=== PATIENT | male | born 1950 | race Caucasian/White ===

== ENCOUNTER 2019-09-25 17:34 | Inpatient (IN) | payer OTHER ==
[~2019-09-25] VITALS: Ht 172.7 cm; Wt 75.9 kg
[2019-09-25 17:35] VITALS: BP 124/63
[2019-09-25 18:03] LABS: URINE BLOOD NEGATIVE (Negative); URINE CLARITY CLEAR; URINE COLOR YELLOW; URINE GLUCOSE-RANDOM* NEGATIVE (Negative); URINE KETONES 1+ (Negative); URINE LEUKOCYTES-REFLEX NEGATIVE (Negative); URINE NITRITE-REFLEX NEGATIVE (Negative); URINE PROTEIN (DIPSTICK) NEGATIVE (Negative); URINE SPECIFIC GRAVITY 1.015 (1.005-1.035); URINE UROBILINOGEN 0.2 E.U./dl (0.2-1.0)
[2019-09-25 18:05] LABS: ICTOTEST (BILI CONFIRMATORY) Negative (Negative); URINE BILIRUBIN NEGATIVE (Negative)
[2019-09-25 19:07] LABS: ABSOLUTE NEUTROPHILS 3.6 thou/uL (1.4-8.2); BASOPHILS 0.9 % (0.0-2.0); CALCIUM 9.1 mg/dL (8.5-10.1); CREATININE 1.7 mg/dL (0.7-1.3); EOSINOPHILS 3.9 % (0.0-3.0); HEMATOCRIT 38.1 % (42.0-52.0); HEMOGLOBIN 12.9 gm/dL (14.0-18.0); LYMPHOCYTES 28.3 % (24.0-44.0); MCH 30.9 pg (26.0-34.0); MCHC 33.8 g/dL (28.0-37.0); MCV 91.4 fL (80.0-100.0); MONOCYTES 8.9 % (1.0-8.0); PLATELET COUNT 396 thou/uL (150-400); POTASSIUM 3.6 mmol/L (3.5-5.1); RBC 4.16 mil/uL (4.50-6.00); WBC 6.2 thou/uL (4.0-11.0)
[2019-09-25 19:14] LABS: ALBUMIN 3.8 g/dL (3.4-5.0); TOTAL BILIRUBIN 0.5 mg/dL (<0.1-1.0); TOTAL PROTEIN 7.4 g/dL (6.4-8.2)
--- NOTE | 2019-09-25 19:16 | NUR ---
REPEAT CREATININE IN AM.
[2019-09-25] MEDS ORDERED: MAG-OXIDE400 MG PO (21:04)
[2019-09-25] MEDS ORDERED: TWOCAL HN LIQU237 ML PO (21:05)
[2019-09-25] MEDS ORDERED: CASODEX 50 MG T50 M1 PO (21:05)
[2019-09-25] MEDS ORDERED: TRAMADOL 50 MG50 MG PO (21:06)
[2019-09-25] MEDS ORDERED: DESYREL150 MG PO (21:06)
[2019-09-25] MEDS ORDERED: ATIVAN0.5 M1 PO (21:07)
[2019-09-25 21:51] VITALS: BP 126/60
[2019-09-25 22:00] VITALS: BP 153/75
[2019-09-25] MEDS ORDERED: DEPAKOTE250 MG PO (22:37)
[2019-09-25] MEDS ORDERED: ASPIRIN325 PO (22:37)
[2019-09-25] MEDS ORDERED: PLAVIX 75 MG TA75 MG PO (22:38)
[2019-09-25] MEDS ORDERED: LIPITOR40 MG PO (22:38)
[2019-09-25] MEDS ORDERED: ISOSORBIDE MONO30 M1 PO (22:39)
[2019-09-25] MEDS ORDERED: LISINOPRIL-HCT1 EAC1 PO (22:40)
[2019-09-25] MEDS ORDERED: METOPROLOL SUCC25 M1 PO (22:41)
[2019-09-25] MEDS ORDERED: SERTRALINE HCL100 MG PO (22:41)
[2019-09-25] MEDS ORDERED: PROTONIX40 M2 PO (22:41)
--- NOTE | 2019-09-25 23:55 | NUR ---
Patient admitted to [facility] this shift from [facility] by w/c. Patient currently resides at [facility]. Per record, patient has been swinging at staff, going into female peer rooms, inability to be re-directed. Patient calm and cooperative since arrival. Alert and oriented to person only. Appears restless at times. Fidgeting, pacing about the dayroom. Difficulty following one step directions. Received verbal consent from Daughter Judy CoreasMODE over the phone with 2 nurses. Confidential code provided. Daughter then requested to speak with patient. Nurse took patient cordless phone to speak with daughter. Patient had difficulty understanding how to hold phone, put it up to his ear and speak with daughter. Patient asked several times where he was and why he was here. Responded "I don't know" to multiple questions. Patient received IV fluids in the ED prior to arrival for mild LILLIAM. Repeat BMP scheduled for 09/26/19 AM. Patient up ad martha with steady gait. Disorganized speech observed at times. Denies pain or discomfort. Denies anxiety and depression. Denies SI/HI/AH/VH. No obvious delusional or paranoia behaviors observed. Patient has past medical history of prostate cancer, HTN, HLD, PVD, aortic aneurysm. Med rec completed and admission orders obtained from Dr. Lugo, on behalf of Dr. Joseph. Appears that patient was receiving supplement drinks TID at facility. Unknown of any weight loss. Dietary referral placed. Patient provided snack which he ate 10% of. Drank 120cc milk. Patient did require mod assist with staff x1 with multiple verbal cues to change clothing and lay in bed. After pt was able to lay down, patient fell asleep without difficulty and has been resting quietly since.
[2019-09-26 05:29] LABS: ALBUMIN 3.8 g/dL (3.4-5.0); CALCIUM 8.8 mg/dL (8.5-10.1); CREATININE 1.4 mg/dL (0.7-1.3); POTASSIUM 3.5 mmol/L (3.5-5.1); TOTAL BILIRUBIN 0.4 mg/dL (<0.1-1.0); TOTAL PROTEIN 7.3 g/dL (6.4-8.2)
[2019-09-26 08:04] VITALS: BP 100/55
--- NOTE | 2019-09-26 08:22 | EKG ---
[facility] [place] [address] ELECTROCARDIOGRAM REPORT Name: DEJA TINOCO Room #: 526B-B ADM IN M.R.#: [id number] Admission: 09/25/19 Attend Phys: Savannah Lugo MD Discharge: Date of : 54 Report #: [id number] THIS REPORT FOR: cc: Mp Gómez MD, Srinath MD Couchonnal, Luis F. 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
[2019-09-26 09:42] LABS: FOLIC ACID 16.6 ng/mL (8.6-58.9)
--- NOTE | 2019-09-26 14:58 | NUR ---
REKHA called and spoke with pt's DPOA dght Judy. She reported that pt was at [facility] for abut 6 momths and has had an increase in behaviors htese past 2 months. It is unclear if they will take him back. They are wanting less aggression for him to return. Sw will f/u with notes on Sunday. Rekha completed the intake assessment and TP.
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
[2019-09-26 19:52] VITALS: BP 149/80
--- NOTE | 2019-09-26 21:14 | NUR ---
Care of patient assumed at 1915. Patient is lying in bed. When this nurse approaches patient, he looks away. Poor eye contact throughout interaction. Patient largely uncooperative with assessment. Answers every question with I don't give a fuck anymore. Appears depressed and is tearful. Does allow physical assessment. HS reg, LS CTA, BS present x 4. Upon palpation of abdomen, patient is guarding and wincing when ULQ palpated. Tramadol given for pain with HS meds. During med administration, patient states he has to use the toilet. Assisted to bathroom. Patient voids small amount and has medium BM. Compliant with all HS meds. 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 Much of speech is garbled. Unable to make much sense of what he says.
--- NOTE | 2019-09-27 10:42 | NUR ---
PATIENT WAS UP SITTING IN DAY ROOM THIS MORNING, WHEN APPROACHED WITH MORNING MEDICATION, PATIENT BECAME VERY ANGRY, IRRITABLE, REFUSED THE MED, REFUSED BREAKFAST, "STAY THE "F" WAY FROM ME I DO NOT WANT YOU AROUND ME. I DON'T WANT ANYTHING TO EAT". PATIENT IS VERY CONFUSED, MAKING NONSENSICAL STATEMENT. PATIENT IS SAD, VERBALLY ABUSIVE TOWARDS STAFF. REFUSES TO RESPOND TO ASSESSMENT QUESTIONS DESPITE ENCOURAGMENT BY MULTIPLE STAFF. HE SAT IN MORNING GROUP, CURRENTLY SEEM TO BE INTERACTING WELL WITH THE RECREATIONAL THERAPIST, WILL CONTINUE TO REDIRECT, ENCOURAGE MED COMPLIANT, AND MONITOR FOR SAFETY.
[2019-09-27 11:26] VITALS: BP 145/87
[2019-09-27 19:24] VITALS: BP 127/78
[2019-09-27 22:57] VITALS: BP 127/78
--- NOTE | 2019-09-28 01:45 | NUR ---
Assumed care of patient at change of shift. Pt.took PO meds without difficulty. Pt. is alert and oriented x 2 - 3, pupils are pinpoin, and bipedal edema is noted. LCTA but diminished in bases. Bowel sounds x 4 hypoactive. Last BM noted on 09/25. Pt. denies pain and no signs or symptoms of pain or distress noted.
--- NOTE | 2019-09-28 09:55 | NUR ---
PATIENT HAS BEEN UP AND OUT ON THE UNIT, CALM, COOPERATIVE WITH CARE. PATIENT TOOK MORNING MEDICATION WHOLE WITHOUT DIFFICULTY. PATIENT IS EATING MEALS, AND DRINKING FLUID WELL. PATIENT REMAIN FORGETFUL, CONFUSED, AND DELUSIONAL. THINKS THE RECREATIONAL THERAPIST IS HIS GIRLFRIEND. PATIENT DENIES SUICIDAL/HOMICIDAL IDEATION. HE DENIES HAVING PHYSICAL PAIN, NO SIGN OF ACUTE DISTRESS NOTED AT THIS TIME, WILL MONITOR FOR SAFETY.
--- NOTE | 2019-09-28 10:37 | NUR ---
REKHA faxed update to [place].
[2019-09-28 10:46] VITALS: BP 155/70
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
--- NOTE | 2019-09-29 00:46 | NUR ---
ASSUMED CARE ON 09/28/19 @ 19:15, IN BED, AND REFUSED TO ALLOW SELF TO BE REPOSITIONED. REFUSED TO ALLOW VS TO BE TAKEN. REFUSED CALL FROM DAUGHTER. UPON REDIALING DAUGHTER, WAS UNABLE TO GET THE CALL THRU. ACCEPTED MEDS CRUSHED IN ICE CREAM. USED OBSCENITIES TO EXPRESS HIMSELF WHEN ASKED TO REPOSITION HIM IN BED. REFUSED VS. A&O TO SELF ONLY. WILL CONTINUE TO MONITOR Q 12 MINUTES FOR PATIENT SAFETY.
[2019-09-29 08:10] VITALS: BP 141/68
--- NOTE | 2019-09-29 08:30 | NUR ---
PT RESTING WITH EYES CLOSED.
[2019-09-29 09:01] LABS: CREATININE 1.2 mg/dL (0.7-1.3); POTASSIUM 3.8 mmol/L (3.5-5.1)
[2019-09-29 09:20] VITALS: BP 141/68
--- NOTE | 2019-09-29 11:04 | NUR ---
Sw called and left VM with pt's dght requesting a family meeting
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
--- NOTE | 2019-09-29 14:47 | NUR ---
PT DAUGHTER CLEMENTINA CALLED AND WANTING TO TALK TO PT. WILL ASSIST WITH GETTING THE PHONE AND HAVE PT COMMUNICATE WITH HER.
--- NOTE | 2019-09-29 15:06 | NUR ---
GIGI called and spoke with [facility] with Dr watts. He provided an update. Pt will have a doxy.me visit on Sunday at 11:30am. Pt will d/c back to [facility] next week. Gigi and Dr watts attempted to meet wiht the pt but he was not easily rousable from his nap and then cussed us out.
--- NOTE | 2019-09-29 16:00 | NUR ---
PT UP OUT OF BED AT THIS TIME AND SITTING IN DINING ROOM. PT DID TALK TO CLEMENTINA ON PHONE.
--- NOTE | 2019-09-29 17:32 | NUR ---
PT NEEDED ENCOURAGE TO TAKE MEDICATION. PT TOOK WELL WHEN MED CUP UP TO MOUTH.
[2019-09-29 19:36] VITALS: BP 110/60
--- NOTE | 2019-09-29 22:25 | NUR ---
ASSUMED CARE ON 09/29/19 @ 19:15, IN BED, COOPERATED WITH ASSESSMENT AND COMPLIANT WITH MEDICATIONS. TOOK MEDS WHOLE WITH WATER. RETURNED TO SLEEP. PUT HIMSELF IN THE A BED. BED B SHEETS CHANGED FOR ROOMMATE. ABLE TO TELL ME HIS NAME, NO OTHER ORIENTATION NOTED. IN BED WITH EYES CLOSED, RESPIRATIONS EVEN AND UNLABORED. BED IN LOW POSITION, BED ALARM SET.
[2019-09-30 07:51] VITALS: BP 131/63
--- NOTE | 2019-09-30 12:47 | NUR ---
Up ambulating in unit with slow, steady gait. Alert to name only. Confused speech at times, at other times he makes short, coherent statements. Denies SI/HI. Independent with meals, compliant with meds. Breath sounds clear t/o. Reg HR auscultated. Color pale pink with brisk capillary refill and palpable peripheral pulses. Incontinent of yellow urine in brief. Active bowel sounds over soft, rounded abdomen. Pulled 2mm scab from L arm, 2-3 cc bld on arm. Wound cleaned and dressing applied.
--- NOTE | 2019-09-30 13:29 | NUR ---
Sw provided an ipad and pt was able to speak with his dght today through [email or web address]. Pt has 15 minutes of a good talk and was pleasant and seemed happy to see her.
[2019-09-30 19:41] VITALS: BP 108/60
--- NOTE | 2019-09-30 20:14 | NUR ---
Pt. was lying in bed when assessment was performed. Large green/brown bruise noted to left flank. He denies pain and shows no signs or symptoms of pain when area is palpated. Pt. was sleeping but awaken easily but was lethargic in answering questions. He as able to state name but was disoriented to place, year/time, situation. His affect was flat and his interaction was minimal. His skin tone is pale, his lungs were clear but distant and diminished to all lobes. Last BM is noted to be 09/29/19.
[2019-09-30 23:28] VITALS: BP 108/60
--- NOTE | 2019-10-01 02:18 | NUR ---
Pt. resting quietly in bed with eyes closed. Respirations even and non-labored. NO signs or symptoms of pain or distress.
--- NOTE | 2019-10-01 09:00 | NUR ---
Assumed care 0700.He denied complaints. Kayleenappropriately walk over the roommate's mattressrather thanasking nurse to move over.Hewas reminded not to touchanything belonging to another patient and notto step on anyone's mattress. Hewent to bed afterthe breakfast time.
[2019-10-01 09:41] VITALS: BP 154/78
--- NOTE | 2019-10-01 10:49 | NUR ---
Nutrition followup: Pt continues on [facility] unit due to aggressive behavior at facility. Initial visit pt told RD to go away and never come back. Attempted to visit with pt today but he would not speak to me which is typical behavior per staff. No new weight. Variable intake records but average intake past several days of 70% of meals. Ensure previously ordered on trays and documentation of this is sporadic. Was being offered TID but RD will decrease to BID due to fair/good intake of meals. Change to low nutrition risk.
--- NOTE | 2019-10-01 15:18 | NUR ---
Sw sent updates to [facility] [place]. D/C is expected early next week.
--- NOTE | 2019-10-01 15:23 | NUR ---
REKHA sent updates to [facility] and spoke with Jaycee in admissions and reported that pt was going to be ready to d/c early next week. There are no concerns regarding this.
[2019-10-01 20:00] VITALS: BP 102/54
[2019-10-01 22:00] VITALS: BP 102/54
--- NOTE | 2019-10-01 23:48 | NUR ---
Assumed care of patient this pm shift. Patient in bed resting. Patient is very soft spoken this evening. Patient denies pain. Patient denies hi/si. Patient takes medications crushed in applesauce. Patient ambulates without assistance. Patient is continent of bowel and bladder. Patients assessment shows clear breath sounds, active bowel sounds, and s1 s2 heard with auscultation. We will continue to monitor per protocol.
[2019-10-02 07:56] VITALS: BP 120/83
--- NOTE | 2019-10-02 10:48 | NUR ---
Up ambulating in unit without s/o distress. Gait slightly unsteady at times especially when first getting up. Alert and orientated to person only. Brushed teeth with direction. Denies SI/HI. Breath sounds clear t/o. Reg HR auscultated. Color pink with brisk capillary refill and palpable peripheral pulses. No edema noted. Brief dry this AM. Active bowel sounds over soft, rounded abdomen. Drank ensure and fluids this AM with encouragement, ate very little breakfast. Compliant with meds, took whole with OJ.
--- NOTE | 2019-10-02 12:12 | NUR ---
RT Progress Note- Patient has slowly progressed in participation with the milieu as he no longer isolates to his room. He is limited in socialization d/t cognition. He has not displayed aggressive or assaultive behaviors during RT interactions. Present for exercise and music groups.
[2019-10-02 20:07] VITALS: BP 120/79
--- NOTE | 2019-10-03 02:00 | NUR ---
Care of patient assumed at 1915. Patient is lying in bed. Declines to participate in interview and assessment. Does allow HS, BS, and LS to be auscultated. All normal. Compliant with HS medications. Declines assistance to the bathroom. Still non-communicative. Sleeping at 2100, 2300, and 0100 checks.
[2019-10-03 07:15] VITALS: BP 136/64
--- NOTE | 2019-10-03 08:34 | NUR ---
PT OUT IN DINING ROOM EATING BREAKFAST. PT NEEDED ASSISTANCE WITH OPENING ITEMS. PT ENCOURAGED TO TAKE MEDICATION. PT DID TAKE MEDICATION. PT NOT VERY VERBAL OR POSS. KARUK.
[2019-10-03 08:40] VITALS: BP 136/64
--- NOTE | 2019-10-03 16:15 | NUR ---
REKHA called [facility] and spoke with Jaycee. REKHA informed Pt would be discharged on 10/07/2019 and needed to set up transportation. Lis refered REKHA to Elmer @[phone]. REKHA caled Elmer and left a VM for a call back.
--- NOTE | 2019-10-03 17:33 | NUR ---
PT HAS HAD A GOOD DAY TODAY. DID PUT ON SOCKS ON HIS FEET BEFORE DINNER. PT HAS STEADY BUT SLOW GAIT. PT NOT TALKING VERY MUCH, PT DID TALK TO FAMILY ON THE PHONE THIS EVENING.
--- NOTE | 2019-10-03 19:21 | NUR ---
Care of patient assumed at 1915. Patient is in bed sleeping. Does not respond to verbal stimuli. Checked back at 2030 when HS meds are ready, and patient is awake, but largely non-communicative. Will not answer questions except to say he doesn't care anymore. Does take HS meds without issue, and thanks this nurse when bed is adjusted for comfort.
[2019-10-03 19:30] VITALS: BP 112/64
[2019-10-04 07:42] VITALS: BP 121/76
--- NOTE | 2019-10-04 12:50 | NUR ---
Sitting on side of bed. Flat affect. States he is fed up. Denies SI/HI but later stated that he should just stop eating. Tearful for few minutes. Some confused speech. Orientated to name only. Breath sounds clear t/o. Reg HR auscultated. Color pale pink with brish capillary refill and palpable peripheral pulses. No edema noted. Yellow urine and stool per toilet per report. Active bowel sounds over soft, rounded abdomen. Up ambulating in unit with slow gait. Seated in room when group in session but not participating.
[2019-10-04 19:38] VITALS: BP 121/80
--- NOTE | 2019-10-04 21:02 | NUR ---
Care of patient assumed at 1915. Patient is sitting inthe day room watching TV. Patient continues to refuse to answer assessment questions. Does allow HS, BS, and LS to be assessed. When asked if he is having any pain, he says yes, but is unable to descibe source, duration, or quality of pain. Attempted to give HS meds at 2014. Patient took meds willingly, and drank a full cup of water. When this nurse walked away, OPEN TENTER OPERATOR witnessed patient spit meds into a tissue. call center support consultant (LAURA Zimmerman) is notified. It is suggested that meds be crushed and try to give them again. New meds obtained and crushed, then placed in applesauce. Patient refuses, stating "I said I don't want them you arrogant son of a bitch! What do I have to do, beat some sense into you?" Fellow staff nurse is able to get him to take meds in applesauce a little while later.
[2019-10-05 07:48] VITALS: BP 120/62
[2019-10-05 10:05] VITALS: BP 120/62
--- NOTE | 2019-10-05 11:00 | NUR ---
1100 RESUMMED CARE FROM OVERNIGHT SHIFT THIS AM, PATIENT IN DAY ROOM TALKING WITH OTHER PATIENTS. PATIENT ATE BREAKFAST TOOK MEDICATION WITHOUT INCIDENCE. PATIENTS ABDOMEN SOFT ROUND BOWEL SOUNDS PRESENT IN ALL 4 QUADRANTS. PATIENTS LUNGS CLEAR PATIENT DENIES SI/HI/AH/VH AT PRESENT. PATIENT DID WALK AROUND UNIT WITH WALKER NO PROBLEMS. PATIENT COOPERATIVE CALM WILL CONTINUE TO MONITOR PATIENT FOR SAFETY AND BEHAVIORS.
[2019-10-05 19:40] VITALS: BP 106/75
--- NOTE | 2019-10-05 20:48 | NUR ---
ASSUMED CARE ON 10/05/19 @ 19:15. COOPERATED WITH ASSESSMENT, ASSESSMENT PROTOCOL W/N/L. REPORTS PAIN IN THE NECK WHEN TURNS HEAD. STATES WANTS HIS CODE TO GIVE TO THE [facility] TO GIVE TO A IN STORE DEMONSTRATOR.
--- NOTE | 2019-10-06 00:47 | NUR ---
ASSUMED CARE ON 10/05/19 @ 19:15, A&OX3, FLAT AFFECT. COOPERATES WITH ASSESSMENT, NORMAL PERAMETERS NOTED. COMPLIANT WITH MEDICATION. SLOW TO ANSWER ASSESSMENT QUESTIONS AND SLOW TO TAKE MEDICATIONS. ABLE TO SWOLLOW MEDS WHOLE WITH WATER. RESTING IN BED WITH EYES CLOSED AND RESPIRATIONS EVEN AT THIS WRITING.
[2019-10-06 00:54] VITALS: BP 106/75
--- NOTE | 2019-10-06 05:57 | NUR ---
SLEPT WELL OVERNIGHT WITH 8.5 HOUR SLEEP.
[2019-10-06 07:32] VITALS: BP 131/64
--- NOTE | 2019-10-06 10:27 | NUR ---
Sleeping in bed without s/o distress. Alert and sleepy when awakened. Responds to name but with confused speech to other orientation questions. Denies SI/HI. Withdraws when feet touched, Tylenol given for pain. Did state med "helped a little" upon reassessment. Able to state he was cold and requested a blanket. Slow, shuffling gait around unit. Breath sounds clear. Reg HR auscultated. Color pink with brisk capillary refill and palpable peripheral pulses. No edema noted. Incontinent of large amt yellow urine on floor. Active bowel sounds over large, rounded abdomen, BM yesterday per report. Ate approximately 20 % of breakfast per STUDENT FINANCE ADVISOR. Drank 12 oz ENSURE with meds with encouragement. Currently sleeping without s/o distress. sleeping without s/o distress.
--- NOTE | 2019-10-06 13:25 | NUR ---
REKHA recieved a call from Amalia Méndez at [facility]. Amalia inquired if REKHA had spoken with Elmer about transportation. REKHA informed Elmer has not called after SW left a on sunday. Amalia wanted to know if REKHA could send out a referral for a behvioral placement for the Pt. REKHA informed referrals can be sent on a Pt if deemed that is a more appropriate placement for a Pt. REKHA also informed that this Pt was not recommended for a higher level of care and will be returning to [facility]. Pt discharge is set for 10/07/2019. Chetna inquired about Pt's behavior on the unit. REKHA informed, per the notes, Pt has not been physically aggressive with staff or other Pt's while here. REKHA also informed that updates were faxed to [facility] on Sunday10/05/2019. Amalia seemed very hesitant accepting that Pt coming back stating " Well I cant have him hitting staff and Pt. If he does I will have to send him right back there" and " Can you send referrals to see if another place will accept him"." We are not trying to dump him, he was a very sweet man before all of this, we cant have him being that combative". REKHA encouraged Amalia to speak with the REKHA on staff at [facility] if they felt Pt was in need of a diffrent placement. REKHA informed if Pt becomes unsafe or aggressive after discharge, [facility] can call to get Pt assessed for readmission. Amalia stated she would have transportation set up and give REKHA a call concerning the time.
[2019-10-06 19:34] VITALS: BP 113/70
--- NOTE | 2019-10-07 00:15 | NUR ---
ASSUMED CARE ON 10/06/19 @ 19:15, IN BED EYES CLOSED, RESPIRATIONS EVEN AND UNLABORED AT THE START OF THE SHIFT. VS WNL. PT AWAKENED FOR ASSESSMENT. ABLE TO GIVE NAME AND LITTLE ELSE. HRRR, LUNGS CTA, ABD NORMACTIVE BOWEL SOUNDS, LAST BM 10/04. TOOK MEDS WHOLE WITH YOGART AND WATER. IN BED AT THIS WRITING WITH EYES CLOSED, RESPIRATIONS EVEN AND UNLABORED, BED IN LOW POSITION, 3 RAILS UP, BED ALARM SET. WILL CONTINUE TO MONITOR Q 12 MINUTES FOR PATIENT SAFETY.
[2019-10-07 00:20] VITALS: BP 113/70
--- NOTE | 2019-10-07 06:09 | NUR ---
SLEPT 10.6 HOURS OVERNIGHT
[2019-10-07 09:00] VITALS: BP 102/65; BP 110/80; BP 139/60
[2019-10-07] MEDS ORDERED: BENAZEPRIL HCL20 MG PO (09:47)
[2019-10-07] MEDS ORDERED: DEPAKOTE500 MG PO (09:47)
[2019-10-07] MEDS ORDERED: ZOLOFT25 MG PO (09:48)
[2019-10-07] MEDS ORDERED: SEROQUEL 25 MG25 M1 PO (09:49)
[2019-10-07] MEDS ORDERED: MAGNESIUM400 MG PO (09:50)
[2019-10-07] MEDS ORDERED: FOLIC ACID1 MG PO (09:50)
[2019-10-07] MEDS ORDERED: B-12500 MCG PO (09:50)
[2019-10-07 11:44] VITALS: BP 92/48
--- NOTE | 2019-10-07 11:47 | NUR ---
REKHA left 3 VM and finally heard back from . They will orange picker machine operator at 2pm. REKHA reported this to nursing. REKHA made a packet anc left it in the chart. REKHA faxed the d/c orders summary and meds list with DA 124 C to .
--- NOTE | 2019-10-07 12:24 | NUR ---
Standing up at side of bed, resistant to walking with walker to dining room. Placed in WC is assistance of customer quality specialist. Alert and orientated to person only. Does respond to some questions. Denies SI/HI/pain. Breath sounds clear t/o. Reg HR auscultated. Color pink with brisk capillary refill and palpable peripheral pulses. Slightly hypotensive, encouraging PO fluids. Repeat BP per karrie cuff 110/70, 102 systolic per machine. BP meds held, Dr. Gautam here assessing pt, states he will place parameters in orders. No edema noted. Brief dry. Active bowel sounds over soft, rounded abdomen. Last documented BM 10/04. Plan is to discharge today. Report called to Nurse Claude at [facility] and msg left with admissions to arrange transport. Jaycee called back, very concerned pt will be combative with staff. Trying to decide what mode of transport to use for discharge. Reassured that no combative behaviors were seen with pt over past week. States she will call back. Tena DA SILVA states discharge with take place at 1400. Pt. sitting at table without s/o distress.
== END 2019-10-07 14:30 | DRG 884 ==
LOC: ER 17:34 → SBH 19:47 → EROBS 19:47 → SBH 21:41
PROVIDERS: Hospitalist; Physician Assistant; ADMIT Psychiatry & Neurology Psychiatry
DX: F01.51 Vascular dementia, unspecified severity, with behavioral disturbance (principal); N17.9 Acute kidney failure, unspecified; N18.3 Chronic kidney disease, stage 3 (moderate); E87.1 Hypo-osmolality and hyponatremia; F03.91 Unspecified dementia, unspecified severity, with behavioral disturbance; F32.9 Major depressive disorder, single episode, unspecified; G47.00 Insomnia, unspecified; K21.0 Gastro-esophageal reflux disease with esophagitis; I12.9 Hypertensive chronic kidney disease with stage 1 through stage 4 chronic kidney disease, or unspecified chronic kidney disease; E78.5 Hyperlipidemia, unspecified; I73.9 Peripheral vascular disease, unspecified; D64.9 Anemia, unspecified; E53.8 Deficiency of other specified B group vitamins; Z66 Do not resuscitate; F10.21 Alcohol dependence, in remission; Z85.46 Personal history of malignant neoplasm of prostate; Z79.01 Long term (current) use of anticoagulants; Z79.899 Other long term (current) drug therapy
CPT/HCPCS: 10880

== ENCOUNTER 2019-11-11 11:03 | Inpatient (IN) | payer OTHER ==
[~2019-11-11] VITALS: Ht 162.6 cm; Wt 65.9 kg
[~2019-11-11 11:03] MED LIST: ASPIRIN325 PO; ATIVAN0.5 M1 PO; B-12500 MCG PO; BENAZEPRIL HCL20 MG PO; CASODEX 50 MG T50 M1 PO; DEPAKOTE250 MG PO; DEPAKOTE500 MG PO; DESYREL150 MG PO; FOLIC ACID1 MG PO; ISOSORBIDE MONO30 M1 PO; LIPITOR40 MG PO; LISINOPRIL-HCT1 EAC1 PO; MAG-OXIDE400 MG PO; MAGNESIUM400 MG PO; METOPROLOL SUCC25 M1 PO; PLAVIX 75 MG TA75 MG PO; PROTONIX40 M2 PO; SEROQUEL 25 MG25 M1 PO; SERTRALINE HCL100 MG PO; TRAMADOL 50 MG50 MG PO; TWOCAL HN LIQU237 ML PO; ZOLOFT25 MG PO
[2019-11-11 11:04] VITALS: BP 137/103
[2019-11-11] MEDS ORDERED: MILK OF MA400 MG/5 M PO (11:24)
[2019-11-11 11:32] LABS: BASOPHILS 1.5 % (0.0-2.0); EOSINOPHILS 4.7 % (0.0-3.0); HEMATOCRIT 38.5 % (42.0-52.0); HEMOGLOBIN 12.9 gm/dL (14.0-18.0); LYMPHOCYTES 28.2 % (24.0-44.0); MCHC 33.5 g/dL (28.0-37.0); MCV 89.5 fL (80.0-100.0); MONOCYTES 10.7 % (1.0-8.0); PLATELET COUNT 394 thou/uL (150-400); POLYS 54.9 % (36.0-66.0); RDW 15.1 % (10.5-14.5); WBC 5.4 thou/uL (4.0-11.0)
[2019-11-11 11:36] LABS: CALCIUM 8.9 mg/dL (8.5-10.1); CREATININE 1.3 mg/dL (0.7-1.3); POTASSIUM 3.6 mmol/L (3.5-5.1)
[2019-11-11 11:42] LABS: ALBUMIN 3.4 g/dL (3.4-5.0); DIRECT BILIRUBIN 0.1 mg/dL (<0.1-0.2); TOTAL BILIRUBIN 0.4 mg/dL (0.2-1.0); TOTAL PROTEIN 6.6 g/dL (6.4-8.2)
[2019-11-11 12:40] LABS: URINE BILIRUBIN NEGATIVE (Negative); URINE BLOOD NEGATIVE (Negative); URINE CLARITY CLEAR; URINE COLOR YELLOW; URINE GLUCOSE-RANDOM* NEGATIVE (Negative); URINE KETONES TRACE (Negative); URINE LEUKOCYTES-REFLEX TRACE (Negative); URINE NITRITE-REFLEX NEGATIVE (Negative); URINE PROTEIN (DIPSTICK) NEGATIVE (Negative); URINE UROBILINOGEN 0.2 E.U./dl (0.2-1.0)
[2019-11-11 12:52] LABS: AMP/METHAMP Negative (Negative); BARBITURATES Negative (Negative); BENZODIAZEPINES Negative (Negative); COCAINE Negative (Negative); METHADONE Negative (Negative); OPIATES Negative (Negative); PCP Negative (Negative)
--- NOTE | 2019-11-11 14:40 | NUR ---
PT ARRIVE TO UNIT VIA W/C. PT LAYING AT FOOT OF BED LOOKING OUT AT PERALTA. PT FROM [facility] FOR REFUSING CARE AND SWINGING AT STAFF. PT ORIENTED TO SELF. PT NOT ABLE TO ANSWER QUESTIONS APPROPRIATLY. PT ABLE TO WALK WITHOUT WALKER OR CANE. PT WAS TAKING OFF HIS SOCKS AND GOWN. PUT ON YELLOW SOCKS, AND YELLOW SHIRT, PT ALSO HAS BRIEF ON AND BLUE PANTS. LUNGS CLEAR, NO COUGH. NO EDEMA NOTED TO LE.
[2019-11-11 15:00] VITALS: BP 140/82
--- NOTE | 2019-11-11 17:04 | EKG ---
[facility] [place] [address] ELECTROCARDIOGRAM REPORT Name: DEJA TINOCO Room #: 519- ADM IN M.R.#: [id number] Admission: 11/11/19 Attend Phys: Erick Joseph DO Discharge: Date of : 54 Report #: [id number] THIS REPORT FOR: cc: Mp Gómez MD, Srinath MD Lundgren,Cayden Francis MD [facility] ~ THIS REPORT FOR: //name// [facility] ED Test Date: 2019-11-11 Test Time: 11:09:06 Pat Name: DEJA TINOCO Department: Room: [facility] Gender: M Director Reactor Projects: ALICE : 1950 Requested By: Katie Olosn Order Number: [id number] MD: Cayden Guevara Measurements Intervals [place] Rate: 65 P: 56 DC: 152 QRS: 32 QRSD: 97 T: 19 QT: 421 QTc: 438 Interpretive Statements Sinus rhythm Baseline wander in lead(s) V1 Compared to ECG 09/25/2019 18:57:38 Myocardial infarct finding no longer present Electronically Signed On 11-11-2019 17:04:17 CDT by Cayden Guevara [email or web address] <ELECTRONICALLY SIGNED> By: Cayden Guevara MD, [facility] 11/11/19 1704 1109 1109 Cayden Guevara MD, [facility] /EPI
--- NOTE | 2019-11-11 17:43 | NUR ---
PT TOOK DEPAKOTE WITHOUT ANY ISSUES. PT NEEDED ENCOURAGED TO EAT. PT WALKING AROUND DINING ROOM.
--- NOTE | 2019-11-11 18:13 | NUR ---
PT GETTING ON THE BED NEXT TO HIS THAT WAS RAISED UP, PUT BED DOWN FOR SAFETY ISSUES.
--- NOTE | 2019-11-11 19:15 | NUR ---
ATTEMPTED TO CALL MODE TINOCO FOR CONSENT TO TREAT, NO ANSWER AT THIS TIME. LEFT MESSAGE ON PHONE TO CALL BACK.
[2019-11-11 19:54] VITALS: BP 124/82
--- NOTE | 2019-11-11 23:50 | NUR ---
Care assumed of patient at 1915: Patient pacing the halls and patient rooms at start of shift. Patient pilfering with linens, papers, clothing. Patient re-directed out of patient rooms several times. Resistive but cooperative with re-direction. Wandering the halls but no exit seeking observed. Patient alert and oriented to name only. Patient was asked his birthdate, he answered stating multiple numbers that were not correct. Patient having disorganized speech. Difficulty answering yes/no questions. Patient appeared to be in pain due to facial grimacing and rubbing his back/legs/neck. Patient provided PRN Tylenol with HS medication. Patient took HS medication whole without difficulty. Patient declined HS snack. Patient denies SI/HI/AH/VH but unknown if patient understands questions. No aggression or agitation observed. Patient was able to be assisted to the bathroom, continent of bladder. Patient was assisted to bed after taking HS medications. Patient restless for approximately 1 hour then was able to fall asleep. Patient sleeping quietly at this time. Nurse spoke with Judy Coreas, patient DPOA, verbal consents obtained for admission.
[2019-11-12 09:01] VITALS: BP 146/86
--- NOTE | 2019-11-12 10:40 | NUR ---
Assumed care 0700. At breakfast partially fed himself. Talked on phone with his daughter. Has been walking around dayroom and hallway. When nurse tries to give him pills he looks away and keeps his head down. Asked patient repeatedly to swallow pills. It looked like he was trying to chew pills. The last of AM pills were crushed and put in pudding. His speech is mumbly. A good part of it is not understandable.
--- NOTE | 2019-11-12 13:28 | NUR ---
SW spoke with pt's dght Judy and she stated that she was not satisifed wiht the care from her previous NH and wanted to look for alternate placement now. REKHA sent referrals to [facility], [facility], [facility], [facility], [facility] and [facility].
--- NOTE | 2019-11-12 13:36 | NUR ---
SW also completed the intake assessment and Tp.
--- NOTE | 2019-11-12 16:40 | NUR ---
Pt. was not reported/observed to be moving items from room to room. Note he does not tolerate chair alarm. In the afternoon he he did not remember talking to his daughter earlier in the day. He became tearful for apparently not remembering he had spoken to his daughter on the phone earlier.
--- NOTE | 2019-11-12 19:24 | NUR ---
Care of patient assumed at 1915. Patient is in day room. Restless, getting up from couch, then sitting back down. Largely unredirectable. Patient does accept hs meds and tkes them without issue. Assisted to toilet, then bed. Patient lays in bed for about 20 minutes then gets back up. Comes to day room for a few minutes, then back to bed. This goes on for about an hour, then patient stays in bed.
[2019-11-12 19:43] VITALS: BP 136/83
[2019-11-13 07:28] VITALS: BP 157/81
--- NOTE | 2019-11-13 09:16 | NUR ---
0700 ASSUMED CRE OF PATIENT, PATIENT SLEEPING IN BED AT THAT TIME. PATIENT DID NOT OME OUT FOR BREAKFAST PATIENT CONTINUES TO SLEEP AND NOT WANTING TO GET UP. 0917 PATIENT OUT OF BED TO DAYROOM TO ATTEND GROUP. WILL CONTINUE TO OBSERVE
--- NOTE | 2019-11-13 10:20 | NUR ---
[facility] declined (full and no memory care )
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
--- NOTE | 2019-11-13 14:36 | NUR ---
SW spoke with SW at his previous placement and they are too small and do not have the staff or means to care for his level of need. This worker will assist in finding new placement. Sw requested support and they continue to seek alternate placement for him while he is here.
--- NOTE | 2019-11-13 15:12 | NUR ---
Pt has been denied at [facility]- memory care is full, [facility] has only AL, and [facility]/ [facility] is full / no memory care.
--- NOTE | 2019-11-13 16:03 | NUR ---
1310 PATIENT IN BED AWAKE, PATIENT UNABLE TO FOLLOW DIRECTION AT THAT TIME. PATIENT NOT WANTING TO SIT UP AND TAKE MEDICATION. PATIENT MUMBLES WORDS AND ROOF TILER UNABLE TO UNDERSTAND. PATIENT OUT OF BED ON HIS OWN AT 1325 MEDICATION GIVEN IN APPLESAUCE WITHOUT DIFFICULTY. PATIENT PRESENT IN AFTERNOON GROUP. SW OUT TO NOTIFY STAFF THAT PATIENT IS DISRUPTING OTHERS IN GROUP. PATIENT TO DAYROOM, ASSISTED PATIENT WITH YOGURT. PATIENT CALM AND COOPERATIVE AT THAT TIME. WILL CONTIBNUE TO OBSERVE
--- NOTE | 2019-11-13 19:24 | NUR ---
Care of patient assumed at 1915. Patient is sitting in day room. Calm upon approach. When asked how he is doing today, patient begins rambling nonsensically, saying something about his mom and dad being here. Patient is unable to answer questions during assessment, and just rambles unintelligibly. HS, LS, BS WNL. Generally disoriented. Patient is seen walking the halls 20 minutes later. At 2029 patient is found sleeping in another patient's room and had urinated on the floor in that room's bathroom. Patient is taken to his room, given HS meds, and assisted to bed.
[2019-11-13 19:56] VITALS: BP 126/90
[2019-11-14 09:02] VITALS: BP 134/69
--- NOTE | 2019-11-14 12:01 | NUR ---
Assumed care 0700. He refused breakfast. Pt. refused meds after being offered them three times. He was going to try to refuse to get up out of the bed. He was assisted into w/c with chair alarm. He has been combative, angry, hostile, while being offered cares and meds. Does not offer explanations when asked what the matter is. Self feeding for lunch.
--- NOTE | 2019-11-14 12:41 | NUR ---
REKHA sent referrals to the following [facility] [phone] [facility] [phone] [facility] [phone]
--- NOTE | 2019-11-14 13:58 | NUR ---
Face is flushed. At one point thought staff was a relative. He continuously is talking, reaching in the air calling out to people not present. A majority of the time he keeps his eyes closed even when talking to people not in the room. Says he wants to go, get out of here. Says come on guys I can do it. tries to grab at nurse and grab her computer cart.
[2019-11-14 20:22] VITALS: BP 121/47
--- NOTE | 2019-11-15 01:26 | NUR ---
Care of patient assumed at 1915. Patient is laying in bed talking on the phone. Once off the phone assessment is completed. Patient answers with words and phrases that do not correspond to questions. Oriented to self only. HS, LS, BS all wNL. Compliant with HS meds, and goes to bed immediately after.
--- NOTE | 2019-11-15 10:24 | NUR ---
0700 ASSUMED CARE OF PATIENT, PATIENT IN BED AT THAT TIME. PATIENT TO DAYROOM FOR BREAKFAST. PATIENT SITTING QUIETLY AND NOT EATING. CHIEF GAUGER ASSISTED PATIENT WITH MEAL. SOME RESISTANCE FROM PATIENT AT TIME WHILE EATING. PATIENT ATE 50% OF MEAL. MEDICATIONS GIVEN CRUSHED IN APPLESAUCE WITHOUT DIFFICULTIES. PATIENT IS CALM. ALERT AND ORIENTED X1. PATIENT MUMBLES AT TIME WITH CHIEF GAUGER UNABLE TO UNDERSTAND. PATIENT AWAKE AT THIS TIME SITTING IN DAYROOM. WILL CONTINUE TO OBSERVE.
[2019-11-15 13:27] VITALS: BP 136/75
[2019-11-15 19:55] VITALS: BP 112/55
--- NOTE | 2019-11-16 03:50 | NUR ---
patient aox1 confused and forgetful. patient encouraged fluids. patient took meds with alot of encouragemnent. fall precaution in place. patient in bed asleep at this time breathing regular and unlaboured.
--- NOTE | 2019-11-16 07:41 | NUR ---
0700 ASSUMED CARE OF PATIENT, PATIENT IN BED AT THAT TIME. ALARM ON BED GOES OFF KIESELGUHR REGENERATOR OPERATOR TO ROOM. PATIENT GETTING OUT OF BED, PATIENT UNSTEADY. ASSISTED PATIENT TO BR PATIENT CONFUSED AND NOT FOLLOWING DIRECTIONS WELL. PATIENT DOES NOT WANT TO TURN AROUND OR SIT ON TOILET. PATIENT URINATES ON FLOOR THEN BECOMES COMBATIVE WITH KIESELGUHR REGENERATOR OPERATOR. PATIENT CLEANED UP WITH ASSIST OF CUSTOMER EXPERIENCE RETAIL CLERK. YELLOW SHIRT ON PATIENT. PATIENT AMB TO DAYROOM WITH WALKER AND ASSIST X1. PATIENT SITTING QUIETLY AT TABLE.
[2019-11-16 08:48] VITALS: BP 134/82
--- NOTE | 2019-11-16 19:27 | NUR ---
Care of patient assumed at 1915. Patient is sitting on his bed. Oriented to self only, patient makes nonsensical responses to questions or mumbles unitelligibly. Does allow HS, LS, and BS to be auscultated. All are WNL. Denies pain when asked. Compliant with HS meds crushed and placed in yogurt. Remains in bed, but moves enough for the alarm to go off several times. Assisted to toilet at 2230, then settles in and goes to sleep.
[2019-11-16 19:50] VITALS: BP 117/75
[2019-11-17 07:47] VITALS: BP 126/73
--- NOTE | 2019-11-17 08:15 | NUR ---
0700 ASSUMED CARE OF PATIENT, PATIENT IN ROOM SITTING ON BED. PATIENT VOIDED X1 WITH ASSIST X1. PATIENT ATE 50% OF MEAL. PATIENT UP AMBULATING IN DAYROOM WHILE USING REMOTE CONTROL A PHONE TALKING ON IT. WILL CONTINUE TO OBSERVE
--- NOTE | 2019-11-17 17:15 | NUR ---
REKHA left f/u msg with Admissions at [facility]. REKHA also faxed referrals to [facility], [facility], [facility], [facility], [facility], and [facility].
[2019-11-17 19:55] VITALS: BP 139/111
[2019-11-17 22:00] VITALS: BP 139/111
--- NOTE | 2019-11-18 00:20 | NUR ---
Assumed care of patient this pm shift. Patient pleasantly confused. Patient is alert and oriented to self. Patients affect is blunted. Patient ambulates without assistance. Patient is a falls risk and needs much redirection. Patient is calm with cares and helps where he can. Patients speech is garbled. Patient does not appear to be in pain. Patients assessment shows clear breath sounds, active bowel sounds, and s1 s2 heard with auscultation. Patient is medication adherent and takes medications crushed in yogurt. We will continue to monitor per hospital protocol.
[2019-11-18 08:54] VITALS: BP 122/72
--- NOTE | 2019-11-18 10:47 | NUR ---
0700 ASSUMED CARE OF PATIENT, PATIENT IN BED SLEEPING AT THAT TIME. UNABLE TO GIVE AM MEDICATION, PATIENT WILL NOT GET OUT OF BED. VS STABLE. WILL CONTINUE TO OBSERVE
--- NOTE | 2019-11-18 11:33 | NUR ---
REKHA called and spoke with Gillian at [facility] and she will fax the DPOA paperwork to office per request of [facility] case management. REKHA will fax this to [facility] [phone]. REKHA also confirmed that d/c would likely be next week.
--- NOTE | 2019-11-18 12:01 | NUR ---
Pt was denied at [facility], [facility]'s is full, [facility] is closed. SW called and left another VM at [facility].
--- NOTE | 2019-11-18 13:36 | NUR ---
[facility] is reviewing, [facility], [facility], [facility], [facility], have all declined this pt. Sw left voicemails for [facility], and [facility]
--- NOTE | 2019-11-18 16:07 | NUR ---
REKHA resent the referral to [facility]
[2019-11-18 20:36] VITALS: BP 104/61
--- NOTE | 2019-11-19 05:43 | NUR ---
11-18-19 CARE TRANSFERRED 1914 OBSERVED PT IN DAY ROOM. 1924 PT AAOX1, SKIN W/D, VSS, RR EVEN AND NONLABORED ON RA. PT DENIES ANY PAIN AND SI/SH/HI/AVH. PT WAS CALM AND COOPERATIVE DURING NURSING ASSESSMENT. DURING MEDICATION ADMIN PT WORKED AT AVOIDING TAKING MEDICATION BY ACTING LIKE HE WAS ON THE PHONE, FINALLY PT ACCEPTED MEDICATION, THEN WHEN MOVING AWAY NOTED PT SPIT MEDICATION OUT ON FLOOR. MEDICATION WAS CRUSHED IN APPLESAUCE. THROUGHOUT NURSING ROUNDS ZERO S/S OF ACUTE EMOTIONAL OR MEDICAL DISTRESS NOTED. WILL CONTINUE TO MONITOR PER [facility] PROT[facility].
--- NOTE | 2019-11-19 08:11 | NUR ---
RT Progress Note- Harris has been present in the milieu though he is unable to engage in structured activities or groups d/t his shortened attention and focus. He speaks in word salad or nonsensicle sentences during interactions but displays a pleasant affect.
--- NOTE | 2019-11-19 10:41 | NUR ---
Assumed care 0700. Upon nurse and other staff entering his room separately this AM patient was quite angry. He would not allow anyone to help him with getting on his socks or coming out to eat his breakfast.
--- NOTE | 2019-11-19 16:08 | NUR ---
SW called [facility] and [facility] as f/u and left anoher VM.
--- NOTE | 2019-11-19 17:55 | NUR ---
Initially he did not want to get up. Eventually he got OOB for lunch and has been up ever since then except for a brief rest in bed. He was helped once to the toilet placing his urine on the floor between toilet and the shower. He does not follow directions usually. He does not seem to comprehend what is being said to him. It is difficult to know if he can hear or does not comprehend what is said to him. He tends to keep his mouth closed when trying to receive his medications. He was mostly med non compliant. AM and second med pass patient ended up spitting out the medications. This was reported to Dr. Joseph. Meds were tried whole and then crushed. He spit out meds both times. Last meds of dayshift pt. took them in ice cream and jello without spitting them out.
--- NOTE | 2019-11-19 19:27 | NUR ---
Care of patient assumed at 1915. Patient is laying in bed awake. Gets up shortly after shift begins and enters the day room. Patient sits and is cooperative with assessment, though answers to assessment questions are disorganized and often resemble word salad. Patient receives a phone call from daughter, and is restless after call. Patient in and out of room. Sometimes going into day room and climbing on couches. Compliant with HS meds crushed and mixed in applesauce. Restlessness continues until 44 when patient lays in bed and appears to fall asleep.
[2019-11-19 20:34] VITALS: BP 101/66
[2019-11-20 07:53] VITALS: BP 129/79
--- NOTE | 2019-11-20 11:38 | NUR ---
Gigi reached Didi at [facility] and they requested more documnetation for the referral. Gigi faxed this right away.
--- NOTE | 2019-11-20 13:50 | NUR ---
Had large brown formed BM with urine in toilet. Needed to be led to toilet. Is not oriented to the unit. Oriented only to name. Conversation does not make sense. He does not speak in sentences. His verbalizations are word salad. He speaks as if he has multiple thoughts that go nonstop with each breath/sentence. When taken to sofa in dayroom to watch football looks puzzled gazing around the room. He seems to be a late riser as he was quite angry when approached for breakfast and for meds. He was kicking and grabbing at staff.
[2019-11-20 16:59] LABS: HEMATOCRIT 42.3 % (42.0-52.0); HEMOGLOBIN 13.9 gm/dL (14.0-18.0); MCH 29.7 pg (26.0-34.0); MCHC 32.9 g/dL (28.0-37.0); MCV 90.1 fL (80.0-100.0); RBC 4.69 mil/uL (4.50-6.00); RDW 15.4 % (10.5-14.5); WBC 5.4 thou/uL (4.0-11.0)
[2019-11-20 17:09] LABS: CALCIUM 9.5 mg/dL (8.5-10.1); CREATININE 1.4 mg/dL (0.7-1.3); MAGNESIUM 2.4 mg/dL (1.8-2.4); POTASSIUM 4.4 mmol/L (3.5-5.1)
[2019-11-20 17:38] LABS: TSH 0.817 uIU/mL (0.358-3.740)
--- NOTE | 2019-11-20 18:15 | NUR ---
No psychiatric acting out behavior the rest of the shift. He does not make sense in conversation. He is oriented to person only. He does not seem to comprehend what is being said to him. Does not make eye contact. He tends to chew pills when given whole in pudding/ice cream.
--- NOTE | 2019-11-20 19:27 | NUR ---
Care of patient assumed at 1915. Patient is wandering the halls, stopping in the day room occassionally. Disoriented, confused. This nurse is able to get patient into his room for assessment. Oriented to self only. Unable to glean much from any answer he gives as most answers are word salad or completely unrelated to the question. HS, LS, BS all WNL for patient. Denies pain. Compliant with HS meds crushed and mixed in applesauce, though he would only take small amounts at a time, slurping in off of the spoon as if drinking through a straw. Patient remains in bed, but awake. Is still awake at 2300 checks.
[2019-11-20 19:38] VITALS: BP 103/63
[2019-11-21 06:38] VITALS: BP 94/55
[2019-11-21 08:00] VITALS: BP 94/55
--- NOTE | 2019-11-21 10:05 | NUR ---
Assumed care 0700. Denied c/o pain or other issues. Came out late to breakfast without any negative behaviors. Besides some wandering and picking up roommate's linens has had a good day. He has been led to the toilet about three times.
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
--- NOTE | 2019-11-21 12:58 | NUR ---
REKHA called Didi at [facility]
--- NOTE | 2019-11-21 13:07 | NUR ---
Sw also sent updates to [facility] and confirmed that they would consider this pt.
--- NOTE | 2019-11-21 18:49 | NUR ---
Patient eats with his fingers some of the time. Meds were crushed and put in various foods with most important meds given first. It is very difficult to understand what he is saying most of the time. At ties he will go up to female peers and try to have a conversation with them. He keeps taking off his socks-won't leave them on. So far no hostile behaviors today.
[2019-11-21 20:03] VITALS: BP 123/58
--- NOTE | 2019-11-21 23:54 | NUR ---
Assumed care on 11/21/19 @ 19:15, in room on bed in an awkward position near the foot of the bed. Encouraged pt to stand and reposition self in bed in a more normal and safe position. x2 assist to get him to stand and reposition. Cooperated with assessment, HRRR, Lungs CTA bilat, ABD normal bowel sounds. When providing meds crushed in yogart, took spoonful of meds/yogart in his mouth and then spit the mixture into his shirt as if he were wiping off his mouth. When offered a drink of water during med administration, used the water to rinse mouth and then spit the water onto the paper towel provided to wipe his mouth.
[2019-11-22 07:35] VITALS: BP 105/55
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
[2019-11-22 16:32] VITALS: BP 105/55
--- NOTE | 2019-11-22 19:21 | NUR ---
Care of patient assumed at 1915. Patient is found laying in a bed in the wrong room. Calm and cooperative when assisted to his own room. Comes back out almost immediately and goes to day room. Cooperates with assessment, though answers are in the form of word salad. Shakes his head in the negative when asked if he is having any pain. Generally disoriented. No concern or goal stated. HS, LS, BS all WNL. Compliant with HS meds with much patience and encouragement. Wanders back and forth between his room and day room. Restless and refusing to sit or lay down.
[2019-11-22 19:56] VITALS: BP 132/95
[2019-11-23 06:06] LABS: HEMATOCRIT 38.9 % (42.0-52.0); HEMOGLOBIN 12.7 gm/dL (14.0-18.0); MCH 29.3 pg (26.0-34.0); MCHC 32.6 g/dL (28.0-37.0); MCV 89.9 fL (80.0-100.0); RBC 4.32 mil/uL (4.50-6.00); RDW 15.3 % (10.5-14.5); WBC 6.2 thou/uL (4.0-11.0)
[2019-11-23 06:17] LABS: CALCIUM 9.2 mg/dL (8.5-10.1); CREATININE 1.3 mg/dL (0.7-1.3); MAGNESIUM 2.7 mg/dL (1.8-2.4)
[2019-11-23 09:05] VITALS: BP 154/80
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
--- NOTE | 2019-11-23 19:21 | NUR ---
Care of patient assumed at 1915. Patient is sleeping in bed. Wakes easily for HS meds. Compliant with meds crushed and placed in pudding, but refuses assessment. Patient is nonresponsive and avoids eye contact. Goes back to sleep after taking meds.
--- NOTE | 2019-11-24 08:30 | NUR ---
PT SLEEPING AT THIS TIME. UNABLE TO OBTAIN VS.
--- NOTE | 2019-11-24 11:04 | NUR ---
SW spoke with kellie Kim and she would like pt to go back to his prior fpc when he's ready.
--- NOTE | 2019-11-24 11:57 | NUR ---
Gigi and Dr Joseph spoke with Judy and it was decided to initate a hospice referral. GIGI called [facility] to discuss the d/c plans and request which hospice, and [facility]. [facility] allows for initial assesment and then tele with nursing until end of life cares are needed.
--- NOTE | 2019-11-24 15:00 | NUR ---
PT GOT UP AND WAS ASSISTED WITH DENISE AND DR. SAUL. NO BEHAVIORS NOTED AT THIS TIME. PT WALKING AROUND THE UNIT WITH STEADY GAIT.
--- NOTE | 2019-11-24 16:09 | NUR ---
Pt is unable to particapite in SW groups
--- NOTE | 2019-11-24 16:25 | NUR ---
PT IN ANOTHER ROOM SITTING ON THE BED LOOKING OUT THE WINDOW. ADM MEDICATION WITH ICE CREAM. PT TOOK MEDS WITHOUT ANY ISSUES. PT ALLOWING THIS ESTATE ATTORNEY TO SIT AND TALK TO HIM. PT TALKING IN SENTANCES NOT MAKING ANY SENCE. PT DID SAY YEP WITH AT TIMES.
--- NOTE | 2019-11-24 19:21 | NUR ---
Care of patient assumed at 1915. Patient is sitting with peers in day room. Patient converses with a peer, but they seem to be having two separate conversations as neither responds with verbiage that fits with the other's. Patient uncooperative with assessment. Unable to ascertain what he is trying to say in response to questions. HS, LS, BS WNL. Denies pain. Refuses HS meds. This nurse goes to prepare IM PRN for refusal but finds discrepancy in orders. Dr Joseph is contacted and made aware. It is decided to let the patient go without meds tonight and monitor his behavior. Patient wanders the unit for a couple of hours, then allows this nurse to lead him to his bed and he quickly falls asleep.
[2019-11-24 19:52] VITALS: BP 107/76
--- NOTE | 2019-11-25 08:00 | NUR ---
PT IN SECLUSION AT THIS TIME FOR BEHAVIOR, THIS CPR INSTRUCTOR CHECKED ON PT AND HE SWATTED AT THE WINDOW. PT HAS 1:1 FOR SAFETY. PT IS PACING AROUND THE ROOM AND TOOK OFF SHIRT.
--- NOTE | 2019-11-25 10:00 | NUR ---
DR. SILVA HERE TO SEE PATIENT. PT WALKED DOWN TO HIS ROOM WITH NURSE. NO BEHAVIORS SEEN AT THIS TIME. PT LAYED DOWN IN BED TO REST.
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
--- NOTE | 2019-11-25 11:40 | NUR ---
REKHA called and left a message for Jessica at [employer] to confirm a bean picker machine operator time on 11/26.
--- NOTE | 2019-11-25 12:20 | NUR ---
RT Progress Note- Harris's participation in both the milieu and recreation groups is very minimal. Harris often sleeps throughout the morning. When awake and present in milieu Harris is difficult to engage and prefers to "explore" the day room or hallways.
--- NOTE | 2019-11-25 13:23 | NUR ---
PT LYING ON RT SIDE IN BED. PT HAS EYES OPEN. ATTEMPTED TO GIVE PT DEPAKOTE IN ICE CREAM. PT UNABLE TO OPEN MOUTH TO TAKE MEDICATION. DR. SILVA HERE TO ASSIST WITH MED ADMINISTRATION. PT WAS GIVEN A INJECTION ON ZYPREXIA 5MG IM FOR REFUSAL OF AM MEDS. PT DIDN'T FIGHT WITH STAFF DURING INJECTION.
--- NOTE | 2019-11-25 15:54 | NUR ---
PT AWAKE NOW AND TAKING CLOTHES OFF AND ALLOWED STAFF TO PUT NEW CLOTHES ON HIME. PT UP WALKING AROUND UNIT SMILING AT STAFF.
--- NOTE | 2019-11-25 16:10 | NUR ---
PT DID TAKE SEROQUEL FULL PO WITH WATER. PT ATE SOME COOKIES. ASKED PT IF HE NEEDED HIS TYLENOL PT DENIES PAIN. ASKED PT IF HE WOULD TAKE MED PO AND NOT CRUSHED, PT SAID YES.
--- NOTE | 2019-11-25 17:14 | NUR ---
PT SITTING AT TABLE EATING DINNER. PT PLEASANT AT THIS TIME. PT SEEMS AWAKE AND CALM.
[2019-11-25 20:10] VITALS: BP 118/68
--- NOTE | 2019-11-25 20:55 | NUR ---
Care assumed of patient at 1915: Patient pacing about the halls and other peers rooms at start of shift. Needed re-direction several times to leave other patient rooms. Patient has also been observed placing himself on the floor by kneeling. Reports that he is "fixing the trim". Patient appears to be having visual hallucinations. Picking at unseen items on the floor, stepping as if he is stepping over something, picking at the air, placing his fingers in his mouth as if he is eating something. Nurse only introduced self to patient originally in the hallway. Patient became immediately irritable and agitated, pointed his finger in the nurses face, stated "I'm sick of your shit, go ". Nurse left patient to wander. Patient playing with exit doors. Patient originally approached with HS Seroquel pills whole. Patient placed pills on silver push bar. Nurse attempted to gather pills when one fell into the back of the push bar and down into the door. Patient having nonsensical speech and unable to be understood. Nurse attempted to assist patient place pills in his mouth which he was resistant but not aggressive, so nurse stopped. Approximately 30 minutes later, nurse collected all HS medication and crushed them. Patient required to be re-directed out of another peers room with staff x2. Patient assisted to his own bed. Nurse attempted to give bite of ice cream with crushed HS medication several times. Patient ate 1/2 of bite and moved it about his mouth for several seconds then spit medication on the floor. Patient then making verbally aggressive statements toward nurse. Patient given Olanzapine IM due to refusal of HS medication. Required staff x2. Patient kicking, swinging his arms, cursing toward staff. Patient up and about pacing halls at this time. No s/s of pain or discomfort observed. Alert and oriented to person only. Uncooperative with nursing assessment.
--- NOTE | 2019-11-26 13:01 | NUR ---
REKHA called daughter Judy, [facility] and [facility] to report that this d/c has been delayed due to the IM the pt received this morning and his increased behvaiors. D/C will be reevaluated next week.
--- NOTE | 2019-11-26 14:55 | NUR ---
PATIENT WAS IN DAYROOM SITTING IN A RECLINER WHEN CARE ASSUMED. WHEN AWOKEN, HE WAS UP, WANDERING AROUND THE UNIT, WANDERS INTO PEERS ROOM, LIKES TO PUT SELF ON THE FLOOR. PATIENT FED BREAKFAST BY STAFF, HE CONSUMED ABOUT 75%, DRINKING FLUID FAIRLY WELL. MORNING MEDICATION CRUSHED IN ICECREAM GIVEN WITH LOTS OF ENCOURAGEMENT, WELL TOLERATED. PATIENT NOTED HAVING VISUAL HALLUCINATION, CONSTANTLY ATTEMPTING TO CONSULTANT EDUCATION SOMETHING ON AN EMPTY FLOOR. PATIENT IS INTRUSIVE TOWARDS PEERS, AND STAFF. HE IS THREATENING, ATTEMPT TO HIT STAFF, BUT DID NOT ACTUALLY HIT. PATIENT IS NOT ABLE TO APPROPRIATELY RESPOND TO ASSESSMENT QUESTIONS DUE TO COGNITIVE IMPAIRMENT. FINGER FOOD OFFERED FOR LUNCH, PATIENT IS TOO DISTRACTED, UNBLE TO SIT STILL TO EAT, HE DRANK ONE ENSURE. PATIENT CONTINUE TO WANDER THE UNIT, REQUIRES CONSTANT REDIRECTION. BAND AID IN PLACE TO YANELI UPPER EXTREMITY, NO SIGN OF ACUTE DISTRESS NOTED AT THIS TIME. WILL CONTINUE TO REDIRECT, AND MONITOR FOR SAFETY.
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
--- NOTE | 2019-11-27 11:54 | NUR ---
Up ambulating with slow, steady gait. Had one near fall when he was backing out of an office and almost tripped over his feet. Alert and cooperative with encouragement.
[2019-11-27 13:12] VITALS: BP 150/87
--- NOTE | 2019-11-27 22:12 | NUR ---
Pt was in his bed sleeping at time of assessment. No agitation or aggression noted. Pt was able to wake up and take med. Med was given in orange sherbet. Metoprolol was given whole in orange sherbet. Pt had some more scoops of ice cream. Pt was calm and cooperative with med. No resistance to care noted. Pt currently in bed sleeping. Will continue to monitor.
[2019-11-27 23:00] VITALS: BP 84/56
[2019-11-28 03:00] VITALS: BP 158/83
--- NOTE | 2019-11-28 04:38 | NUR ---
Pt threw up a brown emesis at about 0300. VS obtained at that time and was stable. Pt cleaned up without resistance. weld fitter contacted [employer] [employer] for hospital, albs ordered per [employer]. Pt currently in bed sleeping. Head of bed significantly elevated in an event that pt has another vomitting episode to prevent possible aspiration. Will continue to monitor.
[2019-11-28 07:41] VITALS: BP 137/94
--- NOTE | 2019-11-28 08:05 | NUR ---
PATIENT IN RESTING WHEN CARE ASSUMED, VITAL SIGNS TAKEN WITH RESULT OF 116/76, P 91, 02 SAT 80-87%. ROOM AIR, DR. SHI PAGED FOR LOW OXYGENE LEVEL, HE STATES WILL TAKE A LOOK OF HIS LABS, MAY GET CHEST X-RAY, PATIENT IS INBED RESPONDS TO STIMULI, BREATHING NORMAL, SO SOA/CYANOSIS NOTED. TWO STAFF ATTEMPTED TO GET PATIENT UP FOR BREAKFAST, HE STARTED SWINGING AT STAFF, PATIENT LEFT IN BED TO REST. WILL MONITOR FOR SAFETY.
[2019-11-28 09:32] LABS: HEMATOCRIT 42.1 % (42.0-52.0); HEMOGLOBIN 13.8 gm/dL (14.0-18.0); MCH 29.4 pg (26.0-34.0); MCHC 32.9 g/dL (28.0-37.0); MCV 89.3 fL (80.0-100.0); RBC 4.71 mil/uL (4.50-6.00); RDW 15.3 % (10.5-14.5); WBC 13.2 thou/uL (4.0-11.0)
[2019-11-28 09:43] LABS: CALCIUM 9.7 mg/dL (8.5-10.1); CREATININE 1.4 mg/dL (0.7-1.3); POTASSIUM 4.5 mmol/L (3.5-5.1)
[2019-11-28 11:17] VITALS: BP 116/76
--- NOTE | 2019-11-28 13:28 | NUR ---
Gigi spoke with pt's dght Judy Coreas and confirmed that she will visit today at 4pm. Gigi added her as the designated visitor per Dr Joseph orders. Gigi also reported this to nursing staff and put it on the white board.
[2019-11-28 19:30] VITALS: BP 133/96
[2019-11-28 23:00] LABS: URINE BILIRUBIN NEGATIVE (Negative); URINE BLOOD NEGATIVE (Negative); URINE CLARITY CLEAR; URINE COLOR YELLOW; URINE GLUCOSE-RANDOM* NEGATIVE (Negative); URINE KETONES NEGATIVE (Negative); URINE LEUKOCYTES-REFLEX NEGATIVE (Negative); URINE NITRITE-REFLEX NEGATIVE (Negative); URINE PROTEIN (DIPSTICK) TRACE (Negative); URINE SPECIFIC GRAVITY 1.015 (1.005-1.035); URINE UROBILINOGEN 0.2 E.U./dl (0.2-1.0)
--- NOTE | 2019-11-29 04:06 | NUR ---
Assumed care of pt @ 1900. Pt calm et cooperative this shift. Took medications crushed in yogurt without difficulty. Ambulates with assistance of chan-chair. VSWNL. Health assessment with no abnormalities noted at present time. Unable to assess SI/HI due to cognitive deficit but pt does not demonstrate any signs or symptoms of acute emotional distress at present time. Pt was straight cathed for culture this shift per physician order. Currently resting in bed with eyes closed. Will continue to monitor per protocol.
[2019-11-29 08:00] VITALS: BP 129/92
--- NOTE | 2019-11-29 08:00 | NUR ---
PT RESTING IN BED, PT HAS A JERKING MOTION AT TIMES TO ARMS. PT VS TAKEN. UNABLE TO GET BP PER MACHINE DUE TO THE TREMORS. BP TAKEN MANUAL. PT IS PUTTING LEGS OVER RAIL AND NEEDED TO PUT LEGS BACK INTO BED.
[2019-11-29 09:12] VITALS: BP 144/73
--- NOTE | 2019-11-29 10:30 | NUR ---
PT STILL IN BED. PT TOOK MEDS CRUSHED IN APPLESAUCE. TRIED TO OFFER LIQUID, PT CLOSED EYES AND WASN'T ABLE TO SUCK FROM THE STRAW.
--- NOTE | 2019-11-29 11:00 | NUR ---
PT DID SAY WHAT ARE WE DOING TODAY. THIS SUPERVISOR TUBING STATED THERE IS DEJA AND HE SAID YEP.
--- NOTE | 2019-11-29 11:30 | NUR ---
PT UP IN DAVID CHAIR X3 STAFF. PT HAS LUKE MOORE FOR SAFETY.
--- NOTE | 2019-11-29 13:15 | NUR ---
PT PICKING AT THIS AIR AND FIGITING IN CHAIR AT THIS TIME. LAID PT BACK IN DAVID CHAIR FOR MORE COMFORT.
--- NOTE | 2019-11-29 14:43 | NUR ---
CALLED AND TRIED TO TALK TO PT. PT STILL FIGITING AND UNABLE TO SPEAK TO HER ON THE PHONE. PT IS MORE ALERT TODAY.
--- NOTE | 2019-11-29 15:56 | NUR ---
PT ABLE TO TAKE 1500 MED IN ICE CREAM. PT TRYING TO PULL SELF UP IN CHAIR. RAISED UP FOOT OF CHAIR FOR MORE RELAXED POSTURE.
[2019-11-29 18:47] VITALS: BP 111/70
[2019-11-29 21:45] VITALS: BP 111/70
--- NOTE | 2019-11-29 22:38 | NUR ---
2240 RESUMMED CARE FROM DAY SHIFT THIS EVENING, PATIENT IN BED QUIET NODING ON AND OFF TO SLEEP. PATIENT IS ORIENTED ONLY TO SELF PATIENT IS MUCH CALMER THEN PREVIOUS DAYS. PATIENTS ABDOMEN SOFT ROUND BOWEL SOUNDS PRESENT LUNGS CLEAR. PATIENT UNABLE TO TELL YOU IF HE HAS SI/HI/AH/VH AT PRESENT. PATIENT USES WALKER WITH ASSIST WITH GAIT BELT. PATIENT HAS BEEN QUIET CALM NO BEHAVIORS THIS SHIFT. WILL CONTINUE TO MONITOR PATIENT FOR SAFETY AND BEHAVIORS.
--- NOTE | 2019-11-30 00:47 | NUR ---
ASSUMED CARE OF PATIENT AT APPROXIMATELY 0015, PATIENT IS CURRENTLY IN BED WITH EYES CLOSED. RR EVEN AND UNLABORED WITH NO S/S OF DISTRESS. WILL CONTINUE TO MONITOR NEEDED AND MAINTAIN Q12 CHECKS TO ENSURE SAFETY AT ALL TIMES.
[2019-11-30 05:51] LABS: ABSOLUTE NEUTROPHILS 9.5 thou/uL (1.4-8.2); BASOPHILS 0.7 % (0.0-2.0); EOSINOPHILS 1.1 % (0.0-3.0); HEMATOCRIT 39.2 % (42.0-52.0); HEMOGLOBIN 12.8 gm/dL (14.0-18.0); LYMPHOCYTES 11.1 % (24.0-44.0); MCH 29.4 pg (26.0-34.0); MCHC 32.7 g/dL (28.0-37.0); MONOCYTES 10.2 % (1.0-8.0); PLATELET COUNT 360 thou/uL (150-400); POLYS 76.9 % (36.0-66.0); RBC 4.35 mil/uL (4.50-6.00); RDW 15.6 % (10.5-14.5); WBC 12.4 thou/uL (4.0-11.0)
[2019-11-30 06:07] LABS: ALBUMIN 3.5 g/dL (3.4-5.0); CALCIUM 9.5 mg/dL (8.5-10.1); CREATININE 2.3 mg/dL (0.7-1.3); POTASSIUM 3.6 mmol/L (3.5-5.1); TOTAL BILIRUBIN 0.6 mg/dL (0.2-1.0); TOTAL PROTEIN 7.4 g/dL (6.4-8.2)
[2019-11-30 07:42] VITALS: BP 101/67
--- NOTE | 2019-11-30 08:17 | NUR ---
PT SITTING IN DAVID CHAIR. PT RESTLESS AND FIGETING WITH TRYING TO SIT UP MORE. CHAIR ALARM IN PLACE. PT GIVEN WATER TO DRINK. PT HAS JERKING MOVEMENT TO ARMS. PT NEEDED ASSISTANCE WITH FEEDING AND HOLDING WATER CUP. PT DID DRINK WATER WITHOUT ANY ISSUES. PT ORIENTED TO NAME, PT UNABLE TO COMMUNICATE PLACE. PT DOES SMILE WITH STAFF AT TIMES AND OPENS EYES WIDER WITH CERTAIN COMMUNICATION. PLACED CRUSHED MEDS IN APPLESAUCE. PT SPIT OUT AND UNABLE TO SWALLOW MEDS.
[2019-11-30 08:30] VITALS: BP 101/67
--- NOTE | 2019-11-30 10:00 | NUR ---
PT SEEMS IN PAIN. WHEN PT PULLS SELF UP IN CHAIR HE GRIMICED. GETTING READY TO PULL DAVID CHAIR OUT OF DINING ROOM TO LAY HIM DOWN, PT HIT AT THE SIDE OF THE CHAIR. TOLD PT NOT TO HIT THAT THIS SCHOOL OF NURSING DIRECTOR IS TRYING TO HELP HIM. PT SMILED AT STAFF WHEN TAKEN TO HIS ROOM TO LAY DOWN. PT NEEDED X2 PERSONS TO TRANSFER TO ROOM. PT DID BEAR WEIGHT ON HIS FEET. PT RESTING IN BED WHEN LAYED DOWN. PT BRIEF DRY.
--- NOTE | 2019-11-30 12:38 | NUR ---
PT OUT IN DINING ROOM. PT DID EAT SOME CHEESECAKE AND DRANK SOME ENSURE. PT UNABLE TO FEED SELF. PT ABLE TO SWALLOW WITHOUT ANY ISSUES.
--- NOTE | 2019-11-30 12:53 | NUR ---
PT HAD ENSURE AND WAS HOLDING IT AND TRYING TO GET LID OFF. LID WAS OFF AND PT HAD STRAW IN IT. PT LET THIS ICE SELLER TAKE ENSURE AND HELP SHOW HIM IT WAS OPEN. PT HAD ENSURE AND TOOK IT AND SPILLED IT OVER THE SIDE OF THE CHAIR.
--- NOTE | 2019-11-30 14:49 | NUR ---
PT SITTING IN DAVID CHAIR IN DINING ROOM. PT AWAKE AT THIS TIME. PT TALKED TO HERMINIA MCRAE ON THE PHONE. PT WAS NOT MAKING MUCH SINCE. PT DIDN'T HAVE TEETH IN. PT DID TRY TO STAND WITH ASSIST AND WAS RETROGRADING BACK. PT DID TAKE 1500 MEDS WITH ORANGE SIL. PT ATE ALL OF SHERB[place] WITH NO ISSUES.
--- NOTE | 2019-11-30 17:37 | NUR ---
PT ATE SOME DINNER AND SPIT OR THREW FOOD ON FLOOR. PT ALLOWED THIS GAS PROCESSING PLANT OPERATOR TO CLEAN HIS NAILS BEFORE DINNER.
[2019-11-30 22:15] VITALS: BP 101/67
--- NOTE | 2019-12-01 02:56 | NUR ---
Assumed care of patient this pm shift. Patient sitting in a reclining chair in the [facility]. Patient mumbles incoherently during the verbal part of the assessment. Patient does not appear to be in any pain. Patient is impulsive and restless. Patient took medications crushed with yogurt. Patients affect is flat. Patient shows no signs of acute distress. Patient can ambulate without assistance. Patient mostly just stares and watches the peers. We will continue to monitor per hospital policy.
[2019-12-01 07:05] LABS: CALCIUM 9.8 mg/dL (8.5-10.1); POTASSIUM 4.4 mmol/L (3.5-5.1)
[2019-12-01 07:11] LABS: CREATININE 4.6 mg/dL (0.7-1.3)
--- NOTE | 2019-12-01 07:19 | NUR ---
RECIEVED CALL FROM [facility]ER IN [facility]HOU[facility] WITH CRITICAL LAB LEVEL OF CREATINE 4.6 AND BUN AT 78 AT 0710[address] P[address] HOSPITALIST [address] ASCENCIO WHO IS DATABASE ENGINEER AND PIERRE COLON SPOKE WITH HIM AT 0720. DR ASCENCIO TOLD ISAIAH TO NOTIFY DR SHI OF RESULTS. DR SHI PAGED AT 0721. PIERRE GARZA IS PATIENT NURSE FOR THE DAY AND STATES SHE WILL TAKE THE CALL AND HANDLE FROM HERE.
--- NOTE | 2019-12-01 11:20 | NUR ---
REKHA spoke with admissions at [facility] and confirmed a 1pm d/c. REKHA set up stretcher van transportation and called pt's daughter Judy to confirm the d/c. REKHA then called [facility] and confirmed the d/c. REKHA made the packet and left it on the chart. Rekha then faxed the orders and summary to [facility] and [facility].
--- NOTE | 2019-12-01 14:26 | NUR ---
NURSING REPORT CALLED TO [facility]OC[facility] CONTACTED VIA PHONE AND DC PAPERWORK REVIEWED-DENIES QUESTIONS AT THIS TIME-PT DISCHARGED VIA STRETCHER -PERSONAL BELONGINGS SENT AT TIME OF DC-IS RESTLESS AT TIME OF DC -RESPONDS TO VERBAL QUEING BUT IS NON-VERBAL,
--- NOTE | 2019-12-01 15:16 | NUR ---
PT DISCHARGED VIA CART ACCOMPNIED BY CIARAN SHAW-ALERT AND MUMBLING AT TIME OF DC. INCONTINENT CARE-PERICARE AND ORAL CARE PROVIDED PRIOR TO DC.
== END 2019-12-01 15:18 | disposition hospice, inpatient (51) | DRG 884 ==
LOC: ER 11:03 → SBH 14:16 → EROBS 14:16 → SBH 14:16
PROVIDERS: Emergency Medicine; Hospitalist; Internal Medicine; Nurse Practitioner Family; ADMIT Psychiatry & Neurology Psychiatry; ATTEND Psychiatry & Neurology Psychiatry
DX: F01.51 Vascular dementia, unspecified severity, with behavioral disturbance (principal); N17.9 Acute kidney failure, unspecified; N18.9 Chronic kidney disease, unspecified; E78.5 Hyperlipidemia, unspecified; I73.9 Peripheral vascular disease, unspecified; I12.9 Hypertensive chronic kidney disease with stage 1 through stage 4 chronic kidney disease, or unspecified chronic kidney disease; F32.9 Major depressive disorder, single episode, unspecified; E55.9 Vitamin D deficiency, unspecified; R09.02 Hypoxemia; Z66 Do not resuscitate; Z03.818 Encounter for observation for suspected exposure to other biological agents ruled out; Z85.46 Personal history of malignant neoplasm of prostate; Z79.82 Long term (current) use of aspirin; Z79.899 Other long term (current) drug therapy
CPT/HCPCS: 10880